=== PATIENT | male | born 1990 ===

== ENCOUNTER 2017-02-06 09:37 | Day surgery (SDC) | payer OTHER ==
[2017-02-06 09:54] VITALS: BMI 25.0
[2017-02-06] MEDS ORDERED: Lidocaine Hydrochloride 5 ML INJ ONE (10:09)
[2017-02-06] MEDS ORDERED: Propofol 10 mg/ml Inj (20 ML) ONE (10:09)
[2017-02-06] MEDS ORDERED: Lactated Ringer's 500 ML IV ONE (10:31)
[2017-02-06 11:19] VITALS: TEMP 98.4; O2SAT 98
[2017-02-06 13:00] VITALS: BP 106/72; PULSE 83; RESP 15
== END 2017-02-06 13:37 | disposition home or self-care (01) ==
LOC: C.ENDO 09:37
PROVIDERS: ATTEND Internal Medicine Gastroenterology
DX: K62.5 Hemorrhage of anus and rectum (principal); K64.8 Other hemorrhoids; Z85.72 Personal history of non-Hodgkin lymphomas
CPT/HCPCS: 45378; J2704; J7120